=== PATIENT | female | born 1945 | race Caucasian/White ===

== ENCOUNTER 2020-01-27 07:41 | Day surgery (SDC) | payer BC, OTHER ==
--- OUTSIDE RECORDS SUMMARY | 2020-01-27 07:45 | XMS ---
:1945 [facility] Team Providers Name Role Phone Irene Burns MD Unavailable Unavailable Re-disclosure Warning The records that you are about to access may contain information from federally- assisted alcohol or drug abuse programs. If such information is present, then the following federally mandated warning applies: This information has been disclosed to you from records protected by federal confidentiality rules (42 CFR part 2). The federal rules prohibit you from making any further disclosure of this information unless further disclosure is expressly permitted by the written consent of the person to whom it pertains or as otherwise permitted by 42 CFR part 2. A general authorization for the release of medical or other information is NOT sufficient for this purpose. The Federal rules restrict any use of the information to criminally investigate or prosecute any alcohol or drug abuse patient.The records that you are about to access may contain highly sensitive health information, the redisclosure of which is protected by Article 27-F of the [facility] Public Health law. If you continue you may haveaccess to information: Regarding HIV / AIDS; Provided by facilities licensed or operated by the [facility] Office of Mental Health; or Provided by the [facility] Office for People With Developmental Disabilities. If such information is present, then the following [facility] mandated warning applies: This information has been disclosed to you from confidential records which are protected by state law. State law prohibits you from making any further disclosure of this information without the specific written consent of the person to whom it pertains, or as otherwise permitted by law. Any unauthorized further disclosure in violation of state law may result in a fine or assisted sentence or both. A general authorization for the release of medical or other information is NOT sufficient authorization for further disclosure. Encounters Encounter Providers Location Date Indications Data Source(s ) Outpatient Attender: Irene 01/05/2020 BONE DENSITY [facility] [facility] 01:00:00 PM Hospital MDReferrer: EDT Irene Burns MD BONE DENSITY Outpatient Attender: 11/25/2019 02:00:00 SCREENING 3D ANTWAN [place] Irene Burns PM EDT MAMMO/TV/BD Chucki fredi [place] SCREENING 3D ANTWAN MAMMO/TV/BD Outpatient Attender: Irene 10/02/2018 01:59:00 MAMMO Z 12.31 [facility] [place] MDReferrer: PM EDT Hosp ital Irene Burns MD MAMMO Z12.31 Insurance Providers Payer name Policy type Policy ID Covered Covered alliance party's Policy P rene / Coverage alliance party ID relationship to [place] [employer] ormation type [place] [id number] SP [id number] MEDICARE AETNA MCR [id number] PT [id number] BLUE CROSS [id number] PT [id number] IND MEDICARE [id number] PT [id number] BLUE CROSS [id number] PT [id number] OTHER Problems, Conditions, and Diagnoses Code Display Name Description Problem Type Effective Dates Data Source(s) Z78.0 Asymptomatic Z78.0 Diagnosis 01/05/2020 [place] menopausal state 12:44:00 PM EDT Hos pital M85.852 Other specified M85.852 Diagnosis 01/05/2020 [place] disorders of bone 12:44:00 PM EDT Ho spital density and structure, left thigh Z13.820 Encounter for Z13.820 Diagnosis 01/05/2020 [place] screening for 12:44:00 PM EDT Hospit al osteoporosis D25.9 Leiomyoma of uterus, D25.9 Diagnosis 11/25/2019 [place] unspecified 02:15:00 PM EDT Hospital 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 Procedure
[2020-01-27] MEDS ORDERED: LIDOCAINE HCL/PF 2% SDV 5ML VIAL ONE (07:57)
[2020-01-27] MEDS ORDERED: PROPOFOL 20 ML ONE ×4 (07:57)
[2020-01-27 08:07] VITALS: BMI 23.3
[2020-01-27 08:58] VITALS: TEMP 98.2
[2020-01-27 09:22] VITALS: BP 110/75; PULSE 72
== END 2020-01-27 09:23 | disposition home or self-care (01) ==
LOC: FASU-ENDO 07:41
PROVIDERS: ATTEND Internal Medicine Gastroenterology
PROC: 0DJD8ZZ Inspection of Lower Intestinal Tract, Via Natural or Artificial Opening Endoscopic (ICD-10-PCS; principal; 2020-01-27 08:30)
DX: Z12.11 Encounter for screening for malignant neoplasm of colon (principal); Z80.0 Family history of malignant neoplasm of digestive organs; K57.30 Diverticulosis of large intestine without perforation or abscess without bleeding